=== PATIENT | female | born 1995 | race American Indian/Alaskan Native ===

== ENCOUNTER 2019-08-25 09:17 | Outpatient (CLI) | payer MEDICAID | END 2019-08-25 09:32 | disposition left against medical advice (07) | LOC: TRG 09:17 | PROVIDERS: ATTEND Obstetrics & Gynecology | DX: O47.00 False labor before 37 completed weeks of gestation, unspecified trimester (principal); Z3A.00 Weeks of gestation of pregnancy not specified ==